=== PATIENT | female | born 1955 | race Caucasian/White ===

== ENCOUNTER 2019-06-11 19:18 | Outpatient (REF) | payer BC, SELFPAY ==
[2019-06-11 21:15] LABS: Anion Gap 9.1 mmol/L (3-11); BUN 18 mg/dL (7-18); CO2 28.9 mmol/L (21.0-32.0); CREATININE 0.86 mg/dL (0.55-1.02); Calcium 9.3 mg/dL (8.5-10.1); Chloride 102 mmol/L (98-107); Glucose 100 mg/dL (70-100); Potassium 4.3 mmol/L (3.5-5.1); Sodium 140 mmol/L (136-145); TSH 2.28 uIU/mL (0.36-3.74)
[2019-06-13 10:25] LABS: Hepatitis C Ab w Rflx HCV PCR Negative (NEGAT)
== END 2019-06-11 19:38 ==
LOC: NCHCN 19:18
PROVIDERS: PCP Physician Assistant; Visit Provider Internal Medicine
DX: Z00.00 Encounter for general adult medical examination without abnormal findings (principal); R60.0 Localized edema; F32.9 Major depressive disorder, single episode, unspecified
CPT/HCPCS: 80048; 86803; 84443

== ENCOUNTER 2020-06-16 19:07 | Outpatient (REF) | payer BC, SELFPAY ==
[2020-06-16 22:41] LABS: ALT 41 U/L (14-59); LDL CHOLESTEROL 123 mg/dL (<100)
[2020-06-16 22:46] LABS: Anion Gap 7.2 mmol/L (3-11); BUN 13 mg/dL (7-18); CO2 28.8 mmol/L (21.0-32.0); Calcium 9.4 mg/dL (8.5-10.1); Chloride 101 mmol/L (98-107); Glucose 95 mg/dL (74-106); Potassium 3.7 mmol/L (3.5-5.1); Sodium 137 mmol/L (136-145)
== END 2020-06-16 19:27 ==
LOC: NCHCN 19:07
PROVIDERS: PCP Physician Assistant; Visit Provider Internal Medicine
DX: Z00.00 Encounter for general adult medical examination without abnormal findings (principal); E66.9 Obesity, unspecified; M17.9 Osteoarthritis of knee, unspecified
CPT/HCPCS: 80048; 83721; 84460

== ENCOUNTER 2021-07-22 16:32 | Outpatient (REF) | payer MEDICARE, BC, SELFPAY ==
[2021-07-22 19:17] LABS: HCT 38.4 % (36.0-46.0); HGB 12.4 g/dL (11.2-15.7); MCH 30.4 pg (27.0-33.0); MCHC 32.3 % (32.0-36.0); MCV 94.1 fL (80-95); MPV 10.5 fL (8.0-11.0); Platelet Count 313 10^3/uL (130-400); RBC 4.08 10^6/uL (3.93-5.22); RDW 13.8 % (11.7-14.6); RDW-SD 47.8 fL
[2021-07-22 20:07] LABS: ALT 33 U/L (14-59); Anion Gap 7.7 mmol/L (3-11); BUN 17 mg/dL (7-18); CO2 30.3 mmol/L (21.0-32.0); CREATININE 0.9 mg/dL (0.55-1.02); Calcium 9.4 mg/dL (8.5-10.1); Chloride 103 mmol/L (98-107); Glucose 92 mg/dL (74-106); LDL CHOLESTEROL 105 mg/dL (<100); Potassium 4.2 mmol/L (3.5-5.1); Sodium 141 mmol/L (136-145); TSH 1.51 uIU/mL (0.36-3.74)
== END 2021-07-22 16:33 | disposition home or self-care (01) ==
LOC: NCHCN 16:32
PROVIDERS: PCP Physician Assistant; Visit Provider Internal Medicine
DX: R53.83 Other fatigue (principal); E78.5 Hyperlipidemia, unspecified; I10 Essential (primary) hypertension
CPT/HCPCS: 80048; 83721; 85027; 84443; 84460

== ENCOUNTER 2022-10-25 21:13 | Outpatient (REF) | payer MEDICARE, SELFPAY ==
[2022-10-25 21:43] LABS: HCT 40.2 % (36.0-46.0); HGB 12.9 g/dL (11.2-15.7); MCH 30.6 pg (27.0-33.0); MCHC 32.1 % (32.0-36.0); MCV 95 fL (80-95); MPV 10.5 fL (8.0-11.0); Platelet Count 286 10^3/uL (130-400); RBC 4.22 10^6/uL (3.93-5.22); RDW 13.4 % (11.7-14.6); RDW-SD 47.2 fL; WBC 5.61 10^3/uL (4.4-10.8)
[2022-10-25 22:08] LABS: Anion Gap 5.2 mmol/L (3-11); BUN 17 mg/dL (7-18); CO2 29.8 mmol/L (21.0-32.0); Calcium 9.8 mg/dL (8.5-10.1); Chloride 105 mmol/L (98-107); Estimated GFR 61.36 (mL/min/1.73m2); Glucose 107 mg/dL (74-106); Potassium 3.9 mmol/L (3.5-5.1); Sodium 140 mmol/L (136-145); TSH 1.51 uIU/mL (0.36-3.74)
[2022-10-25 22:24] LABS: Vitamin D 25 Total 40.5 ng/mL (30-100)
== END 2022-10-25 21:14 | disposition home or self-care (01) ==
LOC: NCHCN 21:13
PROVIDERS: PCP Physician Assistant; Visit Provider Internal Medicine
DX: I10 Essential (primary) hypertension (principal); M17.11 Unilateral primary osteoarthritis, right knee; Z87.11 Personal history of peptic ulcer disease; E66.8 Other obesity; E78.5 Hyperlipidemia, unspecified
CPT/HCPCS: 80048; 82306; 85027; 84443

== ENCOUNTER 2024-07-04 11:17 | Outpatient (REF) | payer MEDICARE, SELFPAY ==
[2024-07-04 19:19] LABS: ALT 30 U/L (14-59); Anion Gap 7.3 mmol/L (3-11); BUN 16 mg/dL (7-18); CO2 26.7 mmol/L (21.0-32.0); CREATININE 0.9 mg/dL (0.55-1.02); Calcium 9.6 mg/dL (8.5-10.1); Calculated LDL 89 mg/dL (<100); Chloride 105 mmol/L (98-107); Cholesterol 180 mg/dL (<200); Estimated GFR 68.77 (mL/min/1.73m2); Glucose 108 mg/dL (74-106); HDL Cholesterol 71 mg/dL (40-60); Potassium 3.9 mmol/L (3.5-5.1); Sodium 139 mmol/L (136-145); Triglyceride 103 mg/dL (<150)
[2024-07-04 20:03] LABS: Creatine Kinase 100 U/L (26-192)
== END 2024-07-04 11:18 | disposition home or self-care (01) ==
LOC: NCHCN 11:17
PROVIDERS: PCP Physician Assistant; Visit Provider Internal Medicine
DX: I10 Essential (primary) hypertension (principal)
CPT/HCPCS: 80048; 80061; 82550; 84460

== ENCOUNTER 2025-02-13 21:04 | Outpatient (REF) | payer MEDICARE, SELFPAY ==
[2025-02-13 19:43] LABS: ALT 27 U/L (14-59); Anion Gap 6.6 mmol/L (3-11); BUN 28 mg/dL (7-18); CO2 31.4 mmol/L (21.0-32.0); Calcium 10.3 mg/dL (8.5-10.1); Calculated LDL 103 mg/dL (<100); Chloride 102 mmol/L (98-107); Cholesterol 205 mg/dL (<200); Estimated GFR 60.61 (mL/min/1.73m2); Glucose 100 mg/dL (74-106); HDL Cholesterol 65 mg/dL (>or=50); Potassium 4.3 mmol/L (3.5-5.1); Sodium 140 mmol/L (136-145); Triglyceride 186 mg/dL (<150)
[2025-02-13 20:13] LABS: Creatine Kinase 84 U/L (26-192)
== END 2025-02-13 21:05 | disposition home or self-care (01) ==
LOC: NCHCN 21:04
PROVIDERS: PCP Physician Assistant; Visit Provider Internal Medicine
DX: E78.5 Hyperlipidemia, unspecified (principal); I10 Essential (primary) hypertension
CPT/HCPCS: 80048; 80061; 82550; 84460

== ENCOUNTER 2025-03-23 13:29 | Outpatient (REF) | payer MEDICARE, SELFPAY ==
[2025-03-23 20:11] LABS: Abs Immature Grans 0.03 10^3/uL (0.0-0.06); Absolute Basophil Count 0.05 10^3/uL (0.0-0.2); Absolute Eosinophil Count 0.15 10^3/uL (0.0-0.7); Absolute Lymphocyte Count 1.43 10^3/uL (1.2-3.4); Absolute Neutrophil Count 5.97 10^3/uL (1.2-6.7); Basophils % 0.6 %; Eosinophils % 1.8 %; HCT 38.1 % (36.0-46.0); HGB 12.4 g/dL (11.2-15.7); Immature Grans % 0.4 %; Lymphocytes % 17.2 %; MCH 31.2 pg (27.0-33.0); MCHC 32.5 % (32.0-36.0); MCV 96 fL (80-95); MPV 10.4 fL (8.0-11.0); Monocytes % 8.4 %; Neutrophils % 71.6 %; Platelet Count 328 10^3/uL (130-400); RBC 3.98 10^6/uL (3.93-5.22); RDW 13.3 % (11.7-14.6); WBC 8.33 10^3/uL (4.4-10.8)
[2025-03-23 20:18] LABS: C-Reactive Protein 12.13 mg/dL (<or=0.5)
== END 2025-03-23 13:30 | disposition home or self-care (01) ==
LOC: NCHCN 13:29
PROVIDERS: PCP Physician Assistant; Visit Provider Internal Medicine
DX: K57.92 Diverticulitis of intestine, part unspecified, without perforation or abscess without bleeding (principal)
CPT/HCPCS: 85025; 86140